=== PATIENT | female | born 1990 ===

== ENCOUNTER 2024-11-02 07:00 | Day surgery (SDC) | payer OTHER ==
[2024-10-29 12:14] VITALS: BP 101/70
[2024-10-29 12:30] LABS: BASO % 0.7 % (0.1-1.2); EOS # 0.08 (0.04-0.54); EOS % 1.4 % (0.7-7.0); LYMPH # 1.70 (1.18-3.74); LYMPH % 29.0 % (19.3-53.1); MEAN PLATELET VOLUME 12.80 fl (9.4-12.4); MONO # 0.38 (0.24-0.82); MONO % 6.5 % (4.7-12.5); NEUT # 3.65 (1.56-6.13); NEUT % 62.2 % (34.0-71.1); RED CELL DISTRIBUTION WIDTH 12.5 % (11.6-14.4)
[2024-10-29 12:31] LABS: URINE APPEARANCE Clear; URINE BILIRRUBIN Small (NEGATIVE); URINE BLOOD Negative; URINE COLOR Dark Yellow; URINE GLUCOSE Negative (NEGATIVE); URINE KETONE Trace (NEGATIVE); URINE LEUKOCYTE Trace; URINE NITRATE Negative; URINE PROTEIN Trace (NEGATIVE); URINE UROBILINOGEN 1.0 E.U./dl
[2024-10-29 12:34] LABS: URINE BACTERIA 530.4 uL (0.0-1933); URINE EPITHELIAL CELLS 35.9 uL (0.0-38.8); URINE RBC 7.9 uL (0.0-20.8); URINE WBC 20.1 uL (0.0-23.2)
[2024-10-29 12:36] LABS: URINE CAST 0.43 uL (0.0-1.40)
[2024-10-29 13:03] LABS: INR 1.09
[2024-10-29 13:07] LABS: ALT/SGPT 14.0 U/L (12-78); AST/SGOT 12.0 U/L (15-37); BILIRUBIN TOTAL 1.19 mg/dL (0.3-1.2); BUN CREA RATIO 17.0 (7.0-25.0); CREATININE SERUM 0.77 mg/dL (0.55-1.02); GFR 86.87; GLOBULINA 3.7 G/DL (2.4-3.5); GLUCOSE FASTING 79.0 mg/dL (65-100); OSMOLALITY SERUM 280.0 MOSM/KG (275-295)
[~2024-11-02] VITALS: Ht 167.6 cm; Wt 65.3 kg
[2024-11-02] MEDS ORDERED: POVIDONE-IODINE 118 ML BOTT TOP ONE (09:30)
[2024-11-02] MEDS ORDERED: BUPIVACAINE HCL 30 ML VIAL IJ ONE (09:30)
[2024-11-02] MEDS ORDERED: DIBUCAINE 30 GM TUBE RECTAL ONE (09:30)
[2024-11-02] MEDS ORDERED: METRONIDAZOLE/SODIUM CHLORIDE 500 MG/100 ML PIGGYBACK IV ONE (09:30)
[2024-11-02] MEDS ORDERED: LIDOCAINE HCL 1%/EPINEPHRINE 20ML VIAL IJ ONE (09:30)
[2024-11-02] MEDS ORDERED: HEMOSTATIC MATRIX 1 KIT KIT TOP ONE (09:30)
[2024-11-02] MEDS ORDERED: TRIAMCINOLONE ACETONIDE 40 MG/ML VIAL IJ ONE (09:45)
== END 2024-11-02 15:55 | disposition home or self-care (01) ==
LOC: CIR.AMB 07:00
PROVIDERS: ATTEND Colon & Rectal Surgery
DX: K64.3 Fourth degree hemorrhoids (principal); K64.4 Residual hemorrhoidal skin tags; K62.3 Rectal prolapse